=== PATIENT | female | born 1975 | race Caucasian/White ===

== ENCOUNTER → 2016-07-20 | Outpatient (CLI) | payer OTHER | LOC: US 07-05 14:30 → KOH-I 14:40 | DX: R13.10 Dysphagia, unspecified (principal) | CPT/HCPCS: 76536 ==

== ENCOUNTER → 2020-06-06 | Outpatient (CLI) | payer OTHER | LOC: US 06-03 10:00 | DX: E04.9 Nontoxic goiter, unspecified (principal); E78.5 Hyperlipidemia, unspecified | CPT/HCPCS: 76536 ==

== ENCOUNTER → 2020-06-09 | Outpatient (CLI) | payer OTHER | LOC: US 09:30 | DX: E78.5 Hyperlipidemia, unspecified (principal); N20.0 Calculus of kidney | CPT/HCPCS: 76705 ==

== ENCOUNTER → 2020-10-02 | Outpatient (CLI) | payer OTHER | LOC: KOH-I 11:16 | DX: M54.89 Other dorsalgia (principal) | CPT/HCPCS: 72040; 72070 ==

== ENCOUNTER → 2020-11-25 | Outpatient (CLI) | payer OTHER | LOC: KOH-I 12:20 | DX: M54.2 Cervicalgia (principal); M47.812 Spondylosis without myelopathy or radiculopathy, cervical region | CPT/HCPCS: 72040; 72070 ==

== ENCOUNTER → 2021-06-11 | Outpatient (CLI) | payer OTHER | LOC: US 09:30 | DX: E04.9 Nontoxic goiter, unspecified (principal) | CPT/HCPCS: 76536 ==

== ENCOUNTER → 2021-09-22 | Day surgery (SDC) | payer OTHER ==
[~2021-09-22] MED LIST: CETIRIZINE HCL10 MG PO; OMEPRAZOLE20 M1 PO; VENLAFAXINE H37.5 M1 PO; VITAMIN D350 MCG PO
== END | disposition home or self-care (01) ==
LOC: OR 08:33
DX: K29.61 Other gastritis with bleeding (principal); K25.4 Chronic or unspecified gastric ulcer with hemorrhage; K58.1 Irritable bowel syndrome with constipation
CPT/HCPCS: 84703; J7040

== ENCOUNTER 2021-10-18 12:16 | Emergency (ER) | payer OTHER ==
[2021-10-18 14:29] LABS: HEMOGLOBIN 15.1 gm/dl (12.3-15.3); RED BLOOD COUNT 4.75 M/UL (4.00-5.10); WHITE BLOOD COUNT 10.8 K/UL (4.5-11.0)
[2021-10-18 14:47] LABS: BUN/CREATININE RATIO 15 (0-10)
[2021-10-18] MEDS ORDERED: OMNICEF 300 MG300 MG PO (18:10)
== END 2021-10-18 18:33 | disposition home or self-care (01) ==
LOC: ER1 12:16
DX: N39.0 Urinary tract infection, site not specified (principal); Z87.442 Personal history of urinary calculi
CPT/HCPCS: 80053; 81001; 83690; 84703; 85025; 87086; 99284; Q9967